=== PATIENT | female | born 1945 | race Caucasian/White ===

== ENCOUNTER → 2017-01-24 | Outpatient (CLI) | payer OTHER, MEDICARE | LOC: FIMAGING 08:27 | PROVIDERS: ATTEND Internal Medicine | DX: Z12.31 Encounter for screening mammogram for malignant neoplasm of breast (principal) | CPT/HCPCS: G0202 ==

== ENCOUNTER → 2017-02-02 | Outpatient (CLI) | payer OTHER, MEDICARE | LOC: FIMAGING 09:26 | PROVIDERS: ATTEND Internal Medicine | DX: R92.8 Other abnormal and inconclusive findings on diagnostic imaging of breast (principal) | CPT/HCPCS: G0206 ==

== ENCOUNTER → 2017-02-16 | Outpatient (CLI) | payer OTHER, MEDICARE | LOC: CIMAGING 08:38 | PROVIDERS: ATTEND Internal Medicine | DX: E04.2 Nontoxic multinodular goiter (principal) | CPT/HCPCS: 76536-PO ==

== ENCOUNTER → 2017-07-27 | Outpatient (CLI) | payer OTHER, MEDICARE | LOC: FIMAGING 08:54 | PROVIDERS: ATTEND Internal Medicine | DX: R92.8 Other abnormal and inconclusive findings on diagnostic imaging of breast (principal) ==

== ENCOUNTER → 2018-01-25 | Outpatient (CLI) | payer OTHER, MEDICARE | LOC: FIMAGING 08:08 | PROVIDERS: ATTEND Internal Medicine | DX: Z12.31 Encounter for screening mammogram for malignant neoplasm of breast (principal) ==